=== PATIENT | male | born 1955 ===

== ENCOUNTER 2021-04-19 07:34 | Day surgery (SDC) | payer MEDICARE ==
[~2021-04-19] VITALS: Ht 177.8 cm; Wt 85.9 kg
[2021-04-19 07:51] VITALS: BP 146/101; PULSE 67; TEMP 97.6
[2021-04-19] MEDS ORDERED: FISH OIL 500 M1 EAC1 PO (07:55)
[2021-04-19] MEDS ORDERED: PRINIVIL2.5 MG PO (07:55)
[2021-04-19] MEDS ORDERED: ASPIRIN 81M81 MG/TA2 PO (07:56)
[2021-04-19] MEDS ORDERED: MULTI VITAMINS1 TAB PO (07:56)
[2021-04-19 09:15] VITALS: BP 105/99; PULSE 63; TEMP 97
--- NOTE | 2021-04-19 09:15 | NUR ---
PATIENT TRANSPORTED PER CART FROM [facility] SUITE TO [facility] ACCOMPANIED BY CHARLA RN. PATIENT AMBULATED FROM CART TO CHAIR WITH SLOW STEADY GAIT. MONITORS APPLIED. VSS ON ROOM AIR. 0930 VSS ON ROOM AIR. PATIENT TOLERATES TOAST AND JUICE WITHOUT PROBLEMS. DR ARMANDO IN AND SPEAKS WITH PATIENT. PATIENT'S CALLED. AWAITING TO PICKUP PATIENT.
[2021-04-19 09:30] VITALS: BP 120/95; PULSE 60
[2021-04-19 09:45] VITALS: BP 132/85; PULSE 96
--- NOTE | 2021-04-19 09:45 | NUR ---
VSS ON ROOM AIR. PATIENT TOLERATES FOOD AND DRINK WITHOUT PROBLEMS. PATIENT AT ENTRANCE. IV DC'D PER PROTOCOL. DISCHARGE INSTRUCTIONS GIVEN VERBAL AND DISCHARGE PACKET PROVIDED. QUESTIONS ANSWERED AND PATIENT VOICED UNDERTANDING. PATIENT CHANGES INTO STREET CLOTHES.
== END 2021-04-19 09:55 | disposition home or self-care (01) ==
LOC: SDCO 07:34
DX: Z12.11 Encounter for screening for malignant neoplasm of colon (principal); I10 Essential (primary) hypertension; E78.2 Mixed hyperlipidemia; M19.90 Unspecified osteoarthritis, unspecified site; Z98.52 Vasectomy status; Z79.899 Other long term (current) drug therapy
CPT/HCPCS: J2704